=== PATIENT | male | born 1955 | race Native Hawaiian/Other Pacific Islander ===

== ENCOUNTER → 2018-03-25 | Outpatient (CLI) | payer BC, OTHER | LOC: RAD 10:18 | DX: R05 Cough (principal) ==

== ENCOUNTER → 2019-03-03 | Outpatient (CLI) | payer BC, OTHER ==
--- NOTE | 2019-03-14 13:38 | PFR/MVV ---
[facility] [place] [address] PULMONARY FUNCTION MVV/REPORT Name: VELVET PIMENTEL Room #: [facility].#: [id number] Admission: 03/03/19 Attend Phys: Jaguar Locke MD Discharge: Date of : 53 Report #: [id number] THIS REPORT FOR: //name// COPIES FOR: AGE: 63 SEX/RACE: M/P >> SPIROMETRY: (BTPS) Height: 68 in cm Weight: 150 lbs kg Exam Date: 03/03/19 PRE-RX POST-RX PRED BEST %PRED BEST %PRED %CHG FVC LITERS . 4.22 . 3.69 . 87 . 3.86 . 91 . 5 FEV1 LITERS . 2.95 . 2.89 . 98 . 2.85 . 9 . -2 FEV1/FVC % . 70 . 78 . 111 . 74 . 105 . -6 IAQ24-85% L/Sec . 2.83 . 2.38 . 84 . 2.08 . 73 . -13 PEF L/SEC . 8.00 . 8.21 . 103 . 10.42 . 130 . 27 FEF50/FIF50 UNITLESS . . . 1.75 . . 1.18 . -33 MVV L/Min . 128 . 84 . 65 f 1/Min . . 115 . >> LUNG VOLUMES: (BTPS) PRE-RX POST-RX PRED AVG %PRED AVG %PRED %CHG VC Liters . 4.22 . 4.13 . 98 . . . TLC Liters . 6.12 . 6.16 . 101 . . . RV Liters . 2.30 . 2.03 . 88 . . . RV/TLC % . 39 . 33 . 85 . . . FRC PL Liters . 3.65 . 2.96 . 81 . . . FRC N2 Liters . . . . . . ERV Liters . 1.44 . 0.93 . 64 . . . IC Liters . 2.88 . 3.46 . 120 . . . >> DIFFUSION: DLCO ml/Min/mmHg . 19.6 . 24.3 . 124 . . . DL Felipe ml/Min/mmHg . 19.6 . 24.3 . 124 . . . DLCO/VA ml/Min/mmHg . 3.71 . 5.37 . 145 . . . VA Liters . 6.74 . 4.53 . 67 . . . [facility] [address] [place] [address] PULMONARY FUNCTION MVV/REPORT Name: VELVET PIMENTEL Room #: [facility].#: [id number] Admission: 03/03/19 Attend Phys: Jaguar Locke MD Discharge: Date of : 53 Report #: [id number] COMMENTS: COMMENTS: >> RESISTANCE: PRE-RX PRED AVG %PRED Raw Total cmH20/L/Sec . . 3.59 . Raw Insp cmH20/L/Sec . . 4.85 . Raw Exp cmH20/L/Sec . . 7.37 . Raw cmH20/L/Sec . 1.22 . 1.36 . 112 Gaw L/Sec/cmH20 . 0.877 . 0.734 . 84 sRaw cmH20 Sec . 4.46 . 5.86 . 131 sGaw l/cmH20 Sec . 0.224 . 0.171 . 76 Vtq Liters . . 4.30 . # = OUTSIDE 95% CONFIDENCE INTERVAL CALIBRATION: PRED: 3.00 ACTUAL: EXP 3.01 INSP 3.02 [facility]-OL10-06 [facility]-05 N-1804-4 >> INTERPRETATION/IMPRESSION: CC: David Locke DATE OF SERVICE: 03/03/2019 SPIROMETRY: FEV1 is 2.89 liters (98%), FVC is 3.69 liters (87%), FEV1/FVC ratio 78%. Post-bronchodilator response with no significant improvement. Total lung capacity is 6.16 liters (101%). Diffusing capacity is 124%. IMPRESSION: Pulmonary function studies are suggestive of normal pulmonary [facility] [address] [place] [address] PULMONARY FUNCTION MVV/REPORT Name: VELVET PIMENTEL Room #: [facility] [place]#: [id number] Admission: 03/03/19 Attend Phys: Jaguar Locke MD Discharge: Date of : 53 Report #: [id number] function. There is no significant response to bronchodilator therapy. Diffusing capacity is slightly increased. <ELECTRONICALLY SIGNED> By: Costa Ahn MD 03/14/19 1338 Costa Ahn MD /nt
== END ==
LOC: PUL 08:34
DX: R05 Cough (principal); R06.02 Shortness of breath; Z88.8 Allergy status to other drugs, medicaments and biological substances

== ENCOUNTER → 2021-03-30 | Outpatient (CLI) | payer BC, OTHER | LOC: RAD 11:59 | PROVIDERS: ATTEND Internal Medicine Pulmonary Disease | DX: R05 Cough (principal); R06.02 Shortness of breath; Z88.1 Allergy status to other antibiotic agents; Z88.8 Allergy status to other drugs, medicaments and biological substances ==